=== PATIENT | male | born 1995 | race Two or more races ===

== ENCOUNTER 2019-07-24 08:13 | Emergency (ER) | payer MEDICAID ==
[~2019-07-24] VITALS: Ht 180.3 cm; Wt 102.1 kg
[2019-07-24 08:57] VITALS: BP 115/79
== END 2019-07-24 09:23 | disposition home or self-care (01) ==
LOC: ER 08:13
DX: S93.402A Sprain of unspecified ligament of left ankle, initial encounter (principal); X58.XXXA Exposure to other specified factors, initial encounter; Y93.66 Activity, soccer; Y99.8 Other external cause status; Y92.89 Other specified places as the place of occurrence of the external cause
CPT/HCPCS: 73610

== ENCOUNTER 2022-04-06 16:31 | Emergency (ER) | payer MEDICAID ==
[~2022-04-06] VITALS: Ht 180.3 cm; Wt 102.5 kg
[2022-04-06 16:36] VITALS: BP 113/57
== END 2022-04-06 22:28 | disposition left against medical advice (07) ==
LOC: ER 16:31
DX: M25.511 Pain in right shoulder (principal); Z53.21 Procedure and treatment not carried out due to patient leaving prior to being seen by health care provider; W19.XXXA Unspecified fall, initial encounter; Y93.89 Activity, other specified; Y92.89 Other specified places as the place of occurrence of the external cause; Y99.8 Other external cause status
CPT/HCPCS: 73030

== ENCOUNTER 2022-06-13 18:37 | Emergency (ER) | payer MEDICAID ==
[~2022-06-13] VITALS: Ht 182.9 cm; Wt 100.0 kg
[2022-06-13] MEDS ORDERED: DONNATAL 5ml ORAL Elix (BELLADONNA ALK-PHENOBARB) PO ONE (19:15)
[2022-06-13] MEDS ORDERED: MAALOX PLUS or MAALOX 30 ML PO ONE (19:15)
[2022-06-13] MEDS ORDERED: LIDOCAINE VISCOUS 2% 15ML UD PO ONE (19:15)
[2022-06-13] MEDS ORDERED: PANT40TA2 PO (19:16)
[2022-06-13 19:24] LABS: Basophils # (auto) 0 10 ^3/uL (0-0.2); Basophils % (auto) 0.3 % (0.0-2.0); Eosinophils # (auto) 0.1 10 ^3/uL (0-0.8); Eosinophils % (auto) 0.7 % (0.0-7.0); Hematocrit 47.2 % (41.0-53.0); Hemoglobin 16.5 g/dL (13.5-17.5); Lymphocytes # (auto) 2.2 10 ^3/uL (0.4-5.4); Lymphocytes % (auto) 25.1 % (10.0-50.0); Mean Corpuscular Hemoglobin 30.9 pg (28.0-32.0); Mean Corpuscular Hgb Conc. 34.9 g/dL (32.0-36.0); Mean Corpuscular Volume 88.5 fL (80.0-100.0); Monocytes # (auto) 0.7 10 ^3/uL (0-1.3); Monocytes % (auto) 8.3 % (0.0-12.0); Neutrophils # (auto) 5.8 10 ^3/uL (1.6-8.6); Neutrophils % (auto) 65.6 % (37.0-80.0); Nucleated Red Blood Cells % 0.1 %; Red Blood Cells 5.33 10^6/uL (4.5-5.90); Red Cell Distribution Width 13.3 % (11.8-14.3); White Blood Cell 8.9 10^3/uL (4.4-10.8)
[2022-06-13 19:26] LABS: Albumin 4.4 g/dL (3.4-5.0); Calcium 9.2 mg/dL (8.5-10.1); Potassium 3.9 mmol/L (3.5-5.1)
[2022-06-13 19:30] LABS: BUN/Creatinine Ratio 8.4; Bilirubin, Total 0.5 mg/dL (0.2-1.0); Total Protein 7.6 g/dL (6.4-8.2)
[2022-06-13 21:47] VITALS: BP 113/77
== END 2022-06-13 21:48 | disposition home or self-care (01) ==
LOC: ER 18:39
DX: K29.70 Gastritis, unspecified, without bleeding (principal); Z79.899 Other long term (current) drug therapy
CPT/HCPCS: 36415; 74176; 80053; 83690; 85025